=== PATIENT | female | born 1975 | race Caucasian/White ===

== ENCOUNTER 2020-01-25 05:05 | Emergency (ER) | payer BC ==
[~2020-01-25] VITALS: Ht 175.3 cm; Wt 63.5 kg
[2020-01-25 05:11] VITALS: Ht 175.3 cm; Wt 63.5 kg
[2020-01-25 06:09] LABS: CALCIUM 8.6 mg/dL (8.5-10.1); CARBON DIOXIDE 25.7 mmol/L (21-32); CHLORIDE SERUM 108 mmol/L (98-107); CREATININE SERUM 0.8 mg/dL (0.6-1.0); GFR1 > 60 mL/min; GLUCOSE SERUM 68 mg/dL (74-106); POTASSIUM SERUM 4.8 mmol/L (3.5-5.1); SODIUM SERUM 141 mmol/L (136-145)
[2020-01-25 06:16] LABS: BASOPHIL % 0.1 % (0-2); PLATELET COUNT 229 x10^3mcL (130-400); RED CELL DISTRIBUTION WIDTH 13.3 % (11.5-14.5)
[2020-01-25 06:24] LABS: FREE T4 0.81 ng/dL (0.76-1.46)
[2020-01-25 06:36] LABS: microscopic required? NO
[2020-01-25 07:39] LABS: urine erythrocyte NEGATIVE (NEGATIVE)
[2020-01-25 09:25] VITALS: BP 88/47
== END 2020-01-25 09:15 | disposition home or self-care (01) ==
LOC: ED 05:05
PROVIDERS: Emergency Medicine
DX: R42 Dizziness and giddiness (principal); R11.0 Nausea; R53.1 Weakness
CPT/HCPCS: 84439; J7030; J8597; Q0092; Q0162